=== PATIENT | male | born 1995 | race Two or more races ===

== ENCOUNTER 2016-10-04 19:46 | Emergency (ER) | payer SELFPAY ==
[~2016-10-04] VITALS: Ht 167.6 cm; Wt 59.0 kg
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
[2016-10-04 20:57] VITALS: BP 134/89
[2016-10-04 21:50] LABS: OBC FLU VALID
[2016-10-04] MEDS ORDERED: ACETAMINOPHEN 500 MG TABLET PO ONE (22:00)
== END 2016-10-04 22:13 | disposition home or self-care (01) ==
LOC: ER 19:46
DX: J06.9 Acute upper respiratory infection, unspecified (principal)
CPT/HCPCS: 87804; 99284

== ENCOUNTER 2019-02-02 10:58 | Emergency (ER) | payer SELFPAY ==
[~2019-02-02] VITALS: Ht 162.6 cm; Wt 63.5 kg
[2019-02-02 11:05] VITALS: BP 110/64
[2019-02-02] MEDS ORDERED: DEXAMETHASONE SOD PHOS 20 MG/5 ML VIAL. IM ONE (11:30)
[2019-02-02] MEDS ORDERED: PRED50TA PO (11:33)
[2019-02-02] MEDS ORDERED: HYDR25TA PO (11:33)
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
== END 2019-02-02 11:43 | disposition home or self-care (01) ==
LOC: ER 10:58
DX: L25.5 Unspecified contact dermatitis due to plants, except food (principal); J45.909 Unspecified asthma, uncomplicated
CPT/HCPCS: 96372; 99283; J1100